=== PATIENT | female | born 1965 | race Caucasian/White ===

== ENCOUNTER 2021-08-11 07:47 | Day surgery (SDC) | payer OTHER ==
[~2021-08-11] VITALS: Ht 135 cm; Wt 54.4 kg
[2021-08-11] MEDS ORDERED: diphenhydrAMINE 50 MG/ML VIAL ONE (09:22)
[2021-08-11] MEDS ORDERED: fentaNYL citrate 0.05 MG/ML VIAL ONE (09:22)
[2021-08-11] MEDS ORDERED: LIDOCAINE 2% 100 MG/5 ML UJET TP ONE ×2 (09:23→09:45)
[2021-08-11] MEDS ORDERED: MIDAZOLAM 5 MG/5 ML VIAL ONE (09:23)
[2021-08-11] MEDS ORDERED: MIDAZOLAM 2 MG/2 ML VIAL IVP ONE (09:45)
[2021-08-11] MEDS ORDERED: fentaNYL citrate 0.05 MG/ML VIAL IVP ONE (09:45)
[2021-08-11] MEDS ORDERED: EPINEPHrine PFS 0.1 MG/ML SYR IVP ONE ×2 (10:06→10:35)
== END 2021-08-11 10:40 | disposition home or self-care (01) ==
LOC: MOR 07:47 → MMU 07:48 → MOR 10:40
PROVIDERS: ATTEND Internal Medicine Gastroenterology
DX: Z12.11 Encounter for screening for malignant neoplasm of colon (principal); K62.1 Rectal polyp; Z85.3 Personal history of malignant neoplasm of breast; K63.5 Polyp of colon
CPT/HCPCS: 45381; 45385; 88305; J0171; J2250; J3010; J1200